=== PATIENT | female | born 1985 | race Asian ===

== ENCOUNTER 2022-08-04 16:21 | Emergency (ER) | payer OTHER ==
[2022-08-04] MEDS ORDERED: IBUPROFEN 400 MG TABLET (FP) PO ONE ×2 (16:43→16:54)
[2022-08-04 17:01] VITALS: RESP 16; BMI 31.1
[2022-08-04 18:12] VITALS: BP 151/111; PULSE 87; TEMP 98.7
== END 2022-08-04 18:23 | disposition home or self-care (01) ==
LOC: FER 16:21
DX: R51.9 Headache, unspecified (principal)
CPT/HCPCS: 0241U-QW; 99283-25